=== PATIENT | female | born 1985 | race Caucasian/White ===

== ENCOUNTER 2019-02-01 14:58 | Outpatient (RCR) | payer OTHER, SELFPAY ==
[2019-02-01] MEDS: RHO(D) IMMUNE GLOBULIN 300 MCG SYRINGE IM (19:13)
== END 2019-05-02 23:59 | disposition home or self-care (01) ==
LOC: ANHLAB 14:58
PROVIDERS: Visit Provider Obstetrics & Gynecology
DX: Z29.13 Encounter for prophylactic Rho(D) immune globulin (principal); O36.0990 Maternal care for other rhesus isoimmunization, unspecified trimester, not applicable or unspecified; Z3A.00 Weeks of gestation of pregnancy not specified
CPT/HCPCS: 36415; 90384; 96372; J2790

== ENCOUNTER 2019-04-16 08:05 | Outpatient (CLI) | payer OTHER, SELFPAY ==
[2019-04-16 08:50] LABS: Hematocrit 38.4 % (37.0-47.0); Hemoglobin 12.7 g/dL (12.0-15.0); Mean Corpuscular HGB Conc 33.1 g/dl (32-36); Mean Corpuscular Hemoglobin 29.8 pg (26-34); Mean Corpuscular Volume 90.1 fl (80-100); Mean Platelet Volume 10.3 fl (7.4-10.4); Platelet Count Result 175 k/mm3 (150-375); Red Blood Count 4.26 M/mm3 (4.2-5.4); Red Cell Distribution Width 14.5 % (11.5-14.5); White Blood Count 9.3 K/mm3 (4.5-10.0)
[2019-04-16 09:27] LABS: Rapid Plasma Reagin Non-Reactive (NonReactive)
--- NOTE | 2019-04-16 17:46 | WPDANESEPP ---
Anes - Eval Pre Procedure Date/Time: 04/16/19 17:46 Pre Op Diagnosis: labs-Pre-op Patient Data Age: 34 Gender: F Height: Weight: Allergies Allergy/AdvReac Type Severity Reaction Status Date / Time No Known Allergies Allergy Verified 03/19/19 14:49 Home Medications Medication Instructions Recorded Confirmed Type PNV cmb#95-ferrous fumarate-FA 1 tablet PO DAILY 03/19/19 03/19/19 History [] Laboratory Tests 04/16/19 04/16/19 04/16/19 08:20 08:20 08:20 WBC 9.3 K/mm3 K/mm3 (4.5-10.0) RBC 4.26 M/mm3 M/mm3 (4.2-5.4) Hgb 12.7 g/dL g/dL (12.0-15.0) Hct 38.4 % % (37.0-47.0) MCV 90.1 fl fl (80-100) MCH 29.8 pg pg (26-34) MCHC 33.1 g/dl g/dl (32-36) RDW 14.5 % % (11.5-14.5) Plt Count 175 k/mm3 k/mm3 (150-375) MPV 10.3 fl fl (7.4-10.4) RPR Non-reactive (NonReactive) Blood Type A Negative Antibody Screen Positive Antibody Identification Pending Antigen Identification Pending SUSANNE, IgG Interpret Pending SUSANNE, Poly Interpret Pending SUSANNE, Complement Interp Pending Patient hx anesthesia problems: none Family hx anesthesia problems: none PMFSH Family History Family History (Updated 03/19/19 @ 14:51 by Charlie Ghosh RN) Mother Lupus Grandparent Lupus Breast cancer Rheumatic arteritis Social History Social History (System 01/04/19 @ 16:09 by Poornima Benavidez) Substance use: never Spiritual care concerns: No Exam Day of Procedure 04/16/19 17:46
== END 2019-04-16 08:06 | disposition home or self-care (01) ==
PROVIDERS: Visit Provider Obstetrics & Gynecology
DX: Z01.818 Encounter for other preprocedural examination (principal)
CPT/HCPCS: 36415; 85027; 86592; 86850; 86870; 86880; 86900; 86901; 86902; 86970; 86971

== ENCOUNTER 2019-04-17 09:44 | Inpatient (IN) | payer OTHER, SELFPAY ==
--- NOTE | 2019-03-19 15:02 | PC.NURSE ---
VERIFIED WITH OR SCHEDULE AND PATIENT --C/S ON 04/17/19 AT 1200 PATIENT GIVEN REQUISITION FOR LAB DRAW ON 04/16/19
[2019-04-17] VITALS (86 sets, daily range): BP systolic 82–116; BP diastolic 52–83; PULSE 58–94; RESP 12–20; TEMP 36.1–37.3; O2SAT 94–100; BMI 30.5
[2019-04-17] MEDS: LACTATED RINGERS 1,000 ML 125 ML IV CONT ×2 (10:35→11:19)
--- NOTE | 2019-04-17 10:45 | LDADM ---
This patient, Marisel Bloom, was admitted to Labor/Delivery/Recovery 120 on 04/17/19 at 09:44. Plans for surgery/ and pain management were discussed with patient. Patient/family oriented to hospital policies and general routines including ID bracelet, bed and alarms, visiting hours, pain management, procedures, bathroom and other care routines, personal items, smoking policy, room service/diet and guest tray routines, security routines, and visiting hours. Patient/Family are encouraged to report perceived risks to care and to ask questions if they do not understand what they are told or what they should do. See OBIX for further documentation.
--- NOTE | 2019-04-17 11:02 | WPDANESEPPF ---
Anes - Initial Pre Proc Eval Procedure: Operation Date: 04/17/19 12:00 Proposed Procedures p Repeat Section - Rajesh Ibarra MD Date/Time: 04/17/19 11:02 Surgeon: Rajesh Ibarra MD Pre Op Diagnosis: Repeat Section Patient Data Age: 34 Gender: F Height: 5 ft 7 in Weight: 88.5 kg Last Vital Signs Pulse 94 04/17/19 10:46 BP 100/70 04/17/19 10:46 Allergies Allergy/AdvReac Type Severity Reaction Status Date / Time No Known Allergies Allergy Verified 03/19/19 14:49 Home Medications Medication Instructions Recorded Confirmed Type PNV cmb#95-ferrous fumarate-FA 1 tablet PO DAILY 03/19/19 03/19/19 History [] Patient hx anesthesia problems: none Family hx anesthesia problems: none PMFSH Past Medical History Medical History (Updated 04/17/19 @ 11:03 by Senthil Valverde MD) History of renal stone Surgical History Surgical History History of D&C Family History Family History Mother Lupus Grandparent Lupus Breast cancer Rheumatic arteritis Social History Social History Substance use: never Spiritual care concerns: No Anes - Eval Final PreProcedure Day of Procedure 04/17/19 11:02 Patient weight: overweight Heart: regular rate and rhythm Lungs: clear to auscultation Airway: Mallampati scale class II Neurological: alert and oriented Last oral intake: >/= 8 hours ASA classification: II Emergent: no Anesthetic plan: proceed Anesthesia type and monitoring: regional spinal and standard monitoring Informed Consent: The patient's anesthetic plan and its attendant risks and benefits were discussed with the patient/family/POA. Questions were solicited and answers provided to the satisfaction of the patient/family/POA.
--- NOTE | 2019-04-17 11:33 | PM.IMHP ---
H&P: HPI History of Present Illness Chief complaint: Repeat Section Narrative: 34-year-old 3 para 1011 at 39 4/7 weeks gestation. She is here for a repeat delivery. Her has been uncomplicated. Last menstrual period is 07/14/2018, giving a due date of 04/20/2019, consistent with ultrasound exams in the 1st trimester. Ultrasound exam at 20 weeks demonstrated normal anatomy. Ultrasound exam at 36 weeks demonstrated an estimated weight of 6 lb 15 oz. Her blood type is A negative. She has received RhoGAM. She is rubella immune, hepatitis-B surface antigen negative, RPR negative, HIV negative. Testing for gonorrhea and Chlamydia was negative as well. Glucose challenge test was normal at 95. GBS culture was positive. Review of Systems Review of Systems: All systems reviewed & are unremarkable except as noted in HPI and below PMFSH Past Medical History Medical History (Updated 04/17/19 @ 11:40 by Rajesh Ibarra MD) History of renal stone Surgical History Surgical History History of delivery History of D&C Family History Family History Mother Lupus Grandparent Lupus Breast cancer Rheumatic arteritis Social History Social History Smoking status: Never smoker Substance use: never Spiritual care concerns: No Comments Past OB History: 1) CS of girl weighing 6#13oz for nonreassuring status. 2) Early SAB leading to D&C. 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 Menarche at 12 with menses every 30 days lasting 5-6 days each. No history of abnormal Pap. Meds Home Medications and Allergies Home Medications Medication Instructions Recorded Confirmed Type PNV cmb#95-ferrous fumarate-FA 1 tablet PO DAILY 03/19/19 04/17/19 History [] Allergies Allergy/AdvReac Type Severity Reaction Status Date / Time No Known Allergies Allergy Verified 03/19/19 14:49 Vital Signs Vital Signs - 24 hr 04/17/19 10:41 04/17/19 10:46 Pulse Rate 89 94 Blood Pressure 111/83 100/70 Exam Const: General: comfortable and no acute distress Neck: Neck: supple Thyroid: thyroid normal Resp: Effort & Inspection: normal respiratory effort Auscultation: clear to auscultation bilaterally Cardio: Rate: regular rate Rhythm: regular rhythm GI: Other: Soft, nontender, gravid. NST reactive TOCO: irregular contractions. : Other: Cervix closed, soft Skin: General skin exam: normal color and no rashes or lesions noted Extrem: Other: Nontender, no edema. Psych: Mental Status: mental status grossly normal Affect: normal affect Assessment and Plan Assessment and plan (1) Term : Code(s): Z34.90 - Encounter for supervision of normal , unspecified, unspecified trimester Status: Acute Assessment and Plan: A: IUP at 39 4/7 weeks with prior delivery, desiring repeat. GBS pos. P: I offered repeat delivery. She understands risks of surgery to include risks of anesthesia, risks of pain, infection, bleeding, blood products, thromboembolic phenomena and damage to adjacent structures such as bowel, bladder, ureters, blood vessels and nerves. She understands all these risks and elects to proceed with repeat delivery. Plan preoperative cefazolin.
[2019-04-17] MEDS: ceFAZolin 2 GM/D5W 50 ML 2 GM/50 ML BAG IVPB (11:39)
--- NOTE | 2019-04-17 12:37 | P.PCNOB_ITS ---
OB - Delivery Note Procedure Delivery date: 04/17/19 Procedure: Procedures Operation Date: 04/17/19 12:00 <No data on this case meets the specified criteria> Estimated blood loss (mL): 690 Anesthesia type: Spinal Disposition: PACU Complications: None Narrative: The patient was taken to the operating room where she was prepared and draped in the usual sterile fashion in dorsal supine position with a leftward tilt. She received cefazolin preoperatively. Spinal anesthesia was found to be adequate. A Pfannenstiel skin incision was made along the previous scar line and was carried through to the underlying layer of the fascia. The fascia was incised in the midline and the incision was extended laterally. The fascia was dissected free of the underlying rectus muscles. The rectus muscles were in the midline. The peritoneum was identified, tented up and en tered sharply. The peritoneal incision was extended superiorly and inferiorly with good visualization of the bladder. The bladder blade was placed. The vesicouterine peritoneum was identified, tented up and entered sharply. The incision was extended laterally and the bladder flap was developed. The bladder blade was replaced. The uterus was then incised sharply in a transverse fashion along the lower uterine segment. The incision was extended laterally. The infant's head was delivered atraumatically to the sterile field, followed by the body. The nose and mouth were bulb suctioned. After a delay, the cord was clamped and cut. The infant was handed off the field. Cord blood was collected. The placenta was removed manually and was passed off the field. The uterus was exteriorized and cleared of all clots and debris. The uterine incision was reapproximated using 0 Monocryl in a running, locked fashion. A second, imbricating layer of the same suture resulted in excellent hemostasis. The uterus was returned the abdomen. The pelvis was irrigated copiously with warmed normal saline. Rigorous hemostasis was assured. The fascial layer was reapproximated using 0 Vicryl in a running fashion. The skin was closed with a running, subcuticular stitch of 4 0 Vicryl. Dermaflex was applied externally. Sponge, lap, needle and instrument counts were correct. The patient was taken to the recovery room in stable condition. The infant went to the nursery in stable condition. I was present and scrubbed through the entire procedure. Baby Date of : 04/17/19 Time of : 12:38 Weeks of gestation at delivery: 39 gender: Female Weight (pounds): 8 Weight (ounces): 7 Placenta delivery description: Manual Removal and Normal Configuration cord vessel description: 3 Vessels score one minute: 8 score five minutes: 9
--- NOTE | 2019-04-17 12:40 | PM.OBDSVD ---
DS: Diagnosis Admitting Diagnosis Admitting Diagnosis: Encounter for supervision of normal , unspecified, unspecified trimester Discharge Diagnosis (1) delivery delivered: Code(s): O82 - Encounter for delivery without indication Status: Acute (2) GBS (group B Streptococcus carrier), +RV culture, currently : Code(s): O99.820 - Streptococcus B carrier state complicating Status: Acute (3) Term : Code(s): Z34.90 - Encounter for supervision of normal , unspecified, unspecified trimester Status: Acute OB - DS: Summary OB Procedures : None OB Procedures Intrapartum: OB Procedures: : None Discharge Plan Discharge Attending physician on discharge: Rajesh Ibarra Consulting providers: Senthil Valverde ; Isael Hayes Discharging Clinician: Isael Hayes Patient Disposition: Home, Self-Care Activity: may shower, may drive after 2 weeks and pelvic rest Diet: regular Wound Care Instructions: follow printed instructions Discharge Instructions: Education: Mom and Baby Guide Given to: Mother Follow-Up: Call your delivering provider's office for an appointment to be seen in: 1 Week Mom and baby should come to the [facility] for the follow-up appointment. Appointment Date/Time: April 22, 2019 at 10:00 am What to expect at your follow-up visit: Blood Pressure Check Physical Assessment Call [phone] if you are unable to keep your appointment time. BREAST CARE: 1. Wear a snug supportive bra. 2. For engorgement discomfort: Breast Feeding: A. Apply warm moist washcloths B. Express milk as needed to relieve engorgement C. Wear loose clothing 3. For sore nipples: A. Identify correct latch-on B. Apply warm moist washcloths before and after nursing C. Air dry nipples after nursing D. May apply Lansinoh cream to nipples ABDOMINAL INCISION: (if applicable) 1. Allow incision to air dry 2. Do NOT use lotions for powders on your incision 3. When showering, allow soap and water to run over the incision, but do not wash incision EPISIOTOMY/PERINEAL CARE: 1. Until bleeding stops, use your estella bottle after urinating 2. Change your pad frequently throughout the day 3. No tub baths until seen by your physician - You may shower ACTIVITY: 1. Rest as much as possible. 2. Do not exercise or lift anything heavier than your baby (such as laundry or other children.) 3. Avoid stairs or driving as much as possible. 4. Do not put anything into the vagina. No douching, tampons, or sexual activity until seen by physician. NOTIFY PHYSICIAN IF YOU HAVE ANY QUESTIONS OR IF ANY OF THE FOLLOWING SYMPTOMS OCCUR: 1. If your incision becomes red, swollen, or more painful than what you have experienced in the hospital. 2. If your vaginal bleeding becomes foul smelling. 3. If your vaginal bleeding becomes more heavy than a period or if your bleeding changes from pink to bright red. However, you may pass an occasional walnut-sized clot once or twice for the first week . 4. If you experience a sharp, shooting pain in you calves. 5. If you discover a hard, reddened area on your breast or if you experience flu-like symptoms. DIET: 1. Eat regular, well-balanced meals. 2. Drink plenty of fluids daily. If , drink to thirst. Call or return if temperature above 100.4? F, increased abdominal pain, increased vaginal bleeding or any new problems. Stand Alone Forms: General Discharge Information Follow-up/Referrals: Rajesh Ibarra MD [Physician] - (4 weeks) Discharge Medications: New hydrocodone-acetaminophen [[place]] 5-325 mg tablet 1 - 2 tablet PO Q6H PRN (Reason: pain) Qty: 30 RF: 0 ibuprofen 600 mg tablet 600 mg PO Q6H PRN (Reason: cramps) Qty:
--- NOTE | 2019-04-17 14:01 | SUR.PHASEI ---
Dr. Ibarra informed of saturated estella-pad that weighed 140 gms. Pad was changed 15 mins ago and now the middle of the pad is saturated. Fundus is firm at U; no clots expressed, BP's 107/73 and p 76. 2nd bag of Pitocin insufing at 125 ml/hr. No additional orders at this time.
--- NOTE | 2019-04-17 15:40 | PC.NURSE ---
Pt to nursery to see in level II nursery before moving pt to mom/baby unit.
--- NOTE | 2019-04-17 15:58 | PC.NURSE ---
Dr. Ibarra updated on blood loss in recovery room. Order received for Methergine.
[2019-04-17] MEDS: METHYLERGONOVINE MALEATE 0.2 MG/ML VIAL IM (16:14)
[2019-04-17] MEDS: ONDANSETRON INJ 4 MG/2 ML VIAL IV PUSH (16:32)
[2019-04-17] MEDS: DEXTROSE 5%/0.45% SOD CHL 1,000 ML 125 ML IV CONT (17:10)
--- NOTE | 2019-04-17 19:01 | OBPPTRN ---
Addendum entered by Peri Wilson RN 04/17/19 19:11: time should be 1605 Original Note: Patient transferred to post room #285 via stretcher . Support person present. Oriented to unit, room, information board, rooming in, admission packet and security measures. Patient verbalizes understanding.
[2019-04-18] MEDS: IBUPROFEN 600 MG TABLET PO ×4 (00:26→20:09)
[2019-04-18] MEDS: SIMETHICONE 80 MG TAB.CHEW PO ×6 (00:28→16:57)
[2019-04-18 04:30] VITALS: BP 92/68; PULSE 83; RESP 16; TEMP 36.5; O2SAT 100
[2019-04-18 05:17] LABS: Basophils Percent Auto 0.3 % (0.2-1.2); Eosinophils Percent Auto 0.2 % (0-4.4); Hematocrit 35.6 % (37.0-47.0); Hemoglobin 11.5 g/dL (12.0-15.0); Immature Granulocyte Absolute 0.07 K/mm3 (0.00-0.031); Immature Granulocyte Percent A 0.5 % (0-0.5); Lymphocytes Absolute Auto 1.08 K/mm3 (0.9-3.2); Lymphocytes Percent Auto 7.5 % (18.3-44.2); Mean Corpuscular HGB Conc 32.3 g/dl (32-36); Mean Corpuscular Hemoglobin 29.6 pg (26-34); Mean Corpuscular Volume 91.8 fl (80-100); Mean Platelet Volume 10.5 fl (7.4-10.4); Monocytes Absolute Auto 1.1 K/mm3 (0.1-0.6); Monocytes Percent Auto 7.9 % (2.6-8.5); Neutrophils Absolute Auto 12.1 K/mm3 (1.3-6.7); Neutrophils Percent Auto 83.6 % (45.5-73.1); Platelet Count Result 156 k/mm3 (150-375); Red Blood Count 3.88 M/mm3 (4.2-5.4); Red Cell Distribution Width 14.6 % (11.5-14.5); White Blood Count 14.4 K/mm3 (4.5-10.0)
[2019-04-18] MEDS: DOCUSATE SODIUM 100 MG CAPSULE PO ×2 (08:16→16:58)
[2019-04-18] MEDS: MULTIVIT/MIN/PREN/FOL AC/IRON TABLET 1 TAB PO (08:16)
[2019-04-18 08:40] VITALS: BP 107/65; PULSE 88; RESP 18; TEMP 36.9; O2SAT 99
--- NOTE | 2019-04-18 11:52 | P.PNOB_ITS ---
OB - PN: Subj Subjective Date/time seen: 04/18/19 11:52 Narrative: Pain OK. Tolerating diet. Voiding. OB - PN: Obj Data Labs CBC & Chem 7: 04/18/19 04:42 Labs: Laboratory Results - last 24 hr 04/16/19 04/18/19 08:16 04:42 WBC 14.4 H RBC 3.88 L Hgb 11.5 L Hct 35.6 L MCV 91.8 MCH 29.6 MCHC 32.3 RDW 14.6 H Plt Count 156 MPV 10.5 H Immature Gran % (Auto) 0.5 Neut % (Auto) 83.6 H Lymph % (Auto) 7.5 L Chambers % (Auto) 7.9 Eos % (Auto) 0.2 Baso % (Auto) 0.3 Lymph # (Auto) 1.08 Chambers # (Auto) 1.1 H Eos # (Auto) 0.0 Baso # (Auto) 0.0 Abs Immat Gran (auto) 0.07 H Absolute Neuts (auto) 12.1 H Absolute Nucleated RBC 0.0 Nucleated RBC % 0.0 Enhanced Crossmatch See Detail OB - PN A/P Plan Comments: A: POD#1, doing well. P: Routine care. Exam Psych: Other: AVSS I/O OK ABD soft, nontender, fundus firm. Incision c/d/i. EXT nontender
[2019-04-18 12:40] VITALS: BP 103/59; PULSE 96; RESP 18; TEMP 37; O2SAT 100
--- NOTE | 2019-04-18 14:08 | WPDANLDPN2 ---
Anes-Prog Note L&D Date/Time: 04/18/19 14:08 Comfortable throughout: section Neuraxial method: spinal Epidural/Spinal procedure site: clean & non-tender Neuro status: Neuro function grossly intact. Cardiovascular status: normal Respiratory status: normal Airway patency: baseline Mental status: baseline Post-Op hydration status: normal Vital Signs: Last Vital Signs Temp 98.4 F 04/18/19 08:40 Pulse 88 04/18/19 08:40 Resp 18 04/18/19 08:40 BP 107/65 04/18/19 08:40 Pulse Ox 99 04/18/19 08:40 I/O: Intake & Output 04/17/19 04/18/19 04/18/19 23:59 07:59 15:59 Intake Total 800 Output Total 1400 2200 500 Balance -1400 -1400 -500 Post-procedural complaints: pruritis moderate, treatment effective Patient feedback: Patient satisfied with anesthetic care.
--- NOTE | 2019-04-18 14:08 | WPDANLDNPN2 ---
Anes-Prog Note L&D-Neuraxial Date/Time: 04/18/19 14:08 Neuraxial medications: intrathecal PF morphine Opiod-related complaints: pruritis moderate, treatment effective Patient feedback: Patient satisfied with post-operative pain management.
--- NOTE | 2019-04-18 14:20 | PC.NURSE ---
Upon entering mother has to breast, in football with shallow latch and chin to chest. Mother reports some discomfort during nursing. Reviewed positioning/alignment in football, holding breast in C hold and guided asymmetrical latch on. Demonstrated how to adjust latch more deeply while nursing. Infant was able to draw in more of areola, mother reporting less tenderness. Adjust head with chin up and straight in front of nipple. Infant nursed eagerly, with steady draws and occasional swallowing noted. Reviewed signs of a correct latch, effective nursing and suck swallow ratio. Infant was able to maintain latch with minimal discomfort to mother. Nipple care reviewed. Instructed mother to call out for RN assistance if she is unable to latch for feeding or she has discomfort with nursing. Instructed feeding should be initiated three hours from start of last feeding or if feeding cues are noted before. Mother voiced understanding of information shared. Reviewed feeding cues, frequencies, duration of feedings, feeding elimination flow sheet, and signs of adequate intake. Demonstrated stimulation techniques to wake infant for feeding. Assisted with to breast.
[2019-04-18 20:00] VITALS: BP 90/49; PULSE 85; RESP 16; TEMP 36.9; O2SAT 99
[2019-04-19] MEDS: SIMETHICONE 80 MG TAB.CHEW PO ×6 (01:29→20:49)
[2019-04-19] MEDS: IBUPROFEN 600 MG TABLET PO ×3 (05:29→20:49)
[2019-04-19 08:05] VITALS: BP 130/52; PULSE 90; RESP 16; TEMP 36.9; O2SAT 99
[2019-04-19] MEDS: DOCUSATE SODIUM 100 MG CAPSULE PO ×2 (08:08→14:44)
[2019-04-19] MEDS: MULTIVIT/MIN/PREN/FOL AC/IRON TABLET 1 TAB PO (08:08)
--- NOTE | 2019-04-19 09:00 | PC.NURSE ---
Consulted with patient, mother reports less tenderness after working with deeper latch. Mother is able to independently latch infant with appropriate positioning/alignment. She is feeding as required and waking to feed if needed. is currently meeting outcomes for weight, output, jaundice and feeding frequencies. Reviewed transition to breast milk, signs of adequate intake, and engorgement/relief. Instructed to call ICP if intake/output less than required. Reviewed regular medications mother is taking. Information provided per Eliza. Reviewed community resources on the [facility] website and in the Mom/Baby guide. Information on outpatient services provided. Mother has no further questions at this time.
--- NOTE | 2019-04-19 16:00 | PC.NURSE ---
Patient viewed the discharge video Mother & Baby Care, The First Two Weeks . Patient was given the opportunity and encouraged to ask questions. Patient verbalized understanding of information shared and has been given the mother/baby guide for home reference.
--- NOTE | 2019-04-19 16:20 | PM.OBPNVD ---
OB - PN: Subj Subjective Date/time seen: 04/19/19 16:20 Interval history: Patient doing well today. She is sitting up comfortably in a chair breast-feeding. She is tolerating PO without N/V. She reports adequate pain control. Her bleeding is normal and she reports normal lochia. She denies fever, chills, N/V. She is voiding spontaneously. She is passing flatus but has not yet had a BM. Patient comments: no complaints and pain well controlled; no flatus present OB - PN: Obj Data Labs CBC & Chem 7: 04/18/19 04:42 OB - PN A/P Plan day: 1 Plan: routine care Comments: patient doing well voiding spontaneously Tolerating PO H/H Stable pt desires d/c home tomorrow continue routine PP care Time Spent With Patient Time: Total time spent is greater than 50% in coordination of care (as documented) at patient's floor/unit and/or counseling patient: Time with patient: less than 15 minutes Review of Systems Constitutional: Constitutional: Reports no additional constitutional complaints Cardiovascular: Cardiovascular: Reports no additional cardiovascular complaints Respiratory: Respiratory: Reports no additional respiratory complaints Gastrointestinal: Gastrointestinal: Reports no additional gastrointestinal complaints Genitourinary: Genitourinary: Reports no additional female genitourinary complaints Exam Const: General: comfortable and no acute distress Resp: Effort & Inspection: normal respiratory effort Auscultation: clear to auscultation bilaterally Cardio: Rate: regular rate GI: GI Palp: Yes Soft to palpation and Yes Tenderness to palpation present (GI) (appropriately tender around incision ) Auscultation: normal bowel sounds Other: fundus firm and below umbilicus Incision C/D/I Urinary Catheter: Urinary Catheter: urine clear Psych: Appearance: grossly normal Mental Status: mental status grossly normal Affect: normal affect
[2019-04-19 20:45] VITALS: BP 112/64; PULSE 85; RESP 16; TEMP 37.1; O2SAT 100
[2019-04-20] MEDS: IBUPROFEN 600 MG TABLET PO ×2 (03:50→10:12)
--- NOTE | 2019-04-20 07:49 | P.DS_ITS ---
DS: Diagnosis Admitting Diagnosis Admitting Diagnosis: Encounter for supervision of normal , unspecified, unspecified trimester ter DS: Summary Time Spent with Patient Time attestation: Total time spent providing and/or coordinating discharge services: Exam Const: General: no acute distress Eyes: General: appearance normal, both eyes and all related structures Neck: Neck: supple and no JVD Thyroid: thyroid normal Resp: Effort & Inspection: normal respiratory effort Auscultation: clear to auscultation bilaterally Cardio: Rate: regular rate Rhythm: regular rhythm GI: Inspection: non-distended GI Palp: Yes Soft to palpation, No Tenderness to palpation present (GI) and No Guarding due to palpation present (GI) Auscultation: normal bowel sounds : General: Yes bladder normal to palpation External Female Exam: normal external appearance Speculum Exam - Vagina: normal vaginal discharge and No vaginal bleeding Speculum Exam - Cervix: nontender Bimanual exam- vagina & uterus: bladder normal to palpation and No Cervical tenderness present OB/external & speculum: No vaginal bleeding Skin: General skin exam: no rashes or lesions noted Extrem: General: normal to inspection and no edema Psych: Mental Status: mental status grossly normal Affect: normal affect Discharge Plan Discharge Attending physician on discharge: Rajesh Ibarra Discharging Clinician: Isael Hayes Patient Disposition: Home, Self-Care Activity: may shower, may drive after 2 weeks and pelvic rest Diet: regular Wound Care Instructions: follow printed instructions Discharge Instructions: Call or return if temperature above 100.4? F, increased abdominal pain, increased vaginal bleeding or any new problems. 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
--- NOTE | 2019-04-20 07:50 | PM.OBPNVD ---
OB - PN: Subj Subjective Date/time seen: 04/20/19 07:50 Interval history: Patient doing well today. She is sitting up comfortably in a chair breast-feeding. She is tolerating PO without N/V. She reports adequate pain control. Her bleeding is normal and she reports normal lochia. She denies fever, chills, N/V. She is voiding spontaneously. She is passing flatus but has not yet had a BM. Patient comments: no complaints and pain well controlled baby status: doing well and nursing well OB - PN: Obj Data Labs CBC & Chem 7: 04/18/19 04:42 OB - PN A/P Plan day: 3 Plan: routine care, discharge home and follow up 6 weeks (4 weeks) Time Spent With Patient Time: Total time spent is greater than 50% in coordination of care (as documented) at patient's floor/unit and/or counseling patient: Time with patient: less than 15 minutes Review of Systems Review of Systems: All systems reviewed & are unremarkable except as noted in HPI and below Exam Const: General: no acute distress Eyes: General: appearance normal, both eyes and all related structures Neck: Neck: supple and no JVD Thyroid: thyroid normal Resp: Effort & Inspection: normal respiratory effort Auscultation: clear to auscultation bilaterally Cardio: Rate: regular rate Rhythm: regular rhythm GI: Inspection: non-distended GI Palp: Yes Soft to palpation, No Tenderness to palpation present (GI) and No Guarding due to palpation present (GI) Auscultation: normal bowel sounds : General: Yes bladder normal to palpation External Female Exam: normal external appearance Speculum Exam - Vagina: normal vaginal discharge and No vaginal bleeding Speculum Exam - Cervix: nontender Bimanual exam- vagina & uterus: bladder normal to palpation and No Cervical tenderness present OB/external & speculum: No vaginal bleeding Skin: General skin exam: no rashes or lesions noted Extrem: General: normal to inspection and no edema Psych: Mental Status: mental status grossly normal Affect: normal affect
[2019-04-20 08:45] VITALS: BP 104/66; PULSE 76; RESP 18; TEMP 37.3; O2SAT 98
[2019-04-20] MEDS: DOCUSATE SODIUM 100 MG CAPSULE PO (10:12)
[2019-04-20] MEDS: SIMETHICONE 80 MG TAB.CHEW PO (10:15)
[2019-04-20] MEDS: MULTIVIT/MIN/PREN/FOL AC/IRON TABLET 1 TAB PO (10:16)
[2019-04-22 10:31] VITALS: BP 110/73; PULSE 89; RESP 18; TEMP 37.3
== END 2019-04-20 12:54 | disposition home or self-care (01) | DRG 788 ==
LOC: ANHLDR 10:01 → ANHOB2 04-20 11:54 → ANHLDR 04-23 06:28 → ANHOB2 04-23 06:28
PROVIDERS: Admitting Provider Obstetrics & Gynecology; Visit Provider Obstetrics & Gynecology
PROC: 10D00Z1 Extraction of Products of Conception, Low, Open Approach (ICD-10-PCS; CPT 59514; principal; 2019-04-17 12:00)
DX: O34.211 Maternal care for low transverse scar from previous cesarean delivery (principal); Z3A.39 39 weeks gestation of pregnancy; Z37.0 Single live birth; O99.824 Streptococcus B carrier state complicating childbirth
CPT/HCPCS: 36415; 85025; 85027; 86592; 86850; 86870; 86880; 86900; 86901; 86922; 86970; 86971; A9270; J0131; J0690; J2210; J2274; J2370; J2405; J2590; J7120

== ENCOUNTER 2021-10-04 08:03 | Outpatient (CLI) | payer OTHER, SELFPAY ==
--- NOTE | ~2021-10-04 | US_ITS ---
US right upper quadrant INDICATION: Abdomen pain PROCEDURE: Realtime right upper abdominal ultrasound. COMPARISON: No prior studies for comparison. FINDINGS: The pancreas is normal without focal mass or pancreatic ductal dilation. Liver echotexture is normal without focal mass or intrahepatic biliary dilatation. There is normal directional flow i n the portal vein. The gallbladder is normal without stones, gallbladder wall thickening or pericholecystic fluid. Comm on bile duct measures 3 mm. No sonographic Womack's sign. IMPRESSION: 1: Normal limited abdominal ultrasound. Reviewed, dictated and finalized at location A.
== END 2021-10-04 08:04 | disposition home or self-care (01) ==
PROVIDERS: Visit Provider Obstetrics & Gynecology
DX: R10.9 Unspecified abdominal pain (principal)
CPT/HCPCS: 76705

== ENCOUNTER 2023-01-16 12:05 | Outpatient (CLI) | payer OTHER, SELFPAY ==
[2023-01-16 12:36] LABS: Hematocrit 41.9 % (37.0-47.0); Hemoglobin 13.9 g/dL (12.0-15.0); Mean Corpuscular HGB Conc 33.2 g/dl (32-36); Mean Corpuscular Volume 90.5 fl (80-100); Platelet Count Result 232 k/mm3 (150-375); Red Blood Count 4.63 M/mm3 (4.2-5.4); Red Cell Distribution Width 12.4 % (11.5-14.5); White Blood Count 5.4 K/mm3 (4.5-10.0)
[2023-01-16 12:42] LABS: Appearance Urine Cloudy (Clear); Bacteria Urine Rare /hpf; Bilirubin Urine Negative (Negative); Blood Urine Negative (Negative); Color Urine Yellow (Yellow); Glucose Urine UA Negative (Negative); Ketones Urine Trace mg/dL (Negative); Leukocyte Esterase Ur 2+ LEU/UL (Negative); Nitrate Urine Negative (Negative); Non Pathogenic Casts 0-2; Protein Urine Negative (Negative); RBC Urine 0-2 /hpf (0-2); Specific Grav Ur 1.017 (1.001-1.035); Squamous Epithelial Cell Urine Moderate /hpf (Few); pH Urine 5.5 (5.0-9.0)
[2023-01-16 12:47] LABS: Add Urine Microscopic? YES
[2023-01-16 12:47] LABS: Alanine Aminotransferase 18 U/L (6-35); Albumin Level 4.4 g/dL (3.5-5.1); Alkaline Phosphatase 39 U/L (38-126); Anion Gap 11 mmol/L (8-16); Aspartate Amino Transferase 24 U/L (14-36); Bilirubin,Total 0.7 mg/dL (0.2-1.3); Blood Urea Nitrogen 10 mg/dL (7-17); CRP 0.5 mg/dL (<1.0); Calcium 9.1 mg/dL (8.4-10.2); Carbon Dioxide 25 mmol/L (22-30); Chloride 104 mmol/L (98-107); Estimated Glomerular Filt Rate > 60; Glucose 120 mg/dL (65-110); Potassium 3.6 mmol/L (3.4-5.0); Sodium 140 mmol/L (137-145)
[2023-01-16 13:32] LABS: Erythrocyte Sedimentation Rate 8 mm/hr (0-20)
[2023-01-19 20:23] LABS: Immunoglobulin A 137 mg/dL (47-310); TTG IGA AB <1.0 U/mL (<15.0)
== END 2023-01-16 12:06 | disposition home or self-care (01) ==
LOC: ANHLAB 12:06
PROVIDERS: PCP Nurse Practitioner Family; Visit Provider Nurse Practitioner
DX: K92.1 Melena (principal); R10.33 Periumbilical pain; R19.4 Change in bowel habit; R19.8 Other specified symptoms and signs involving the digestive system and abdomen
CPT/HCPCS: 36415; 80053; 81001; 82784; 84443; 85027; 85652; 86140; 86364; 87077; 87086; 87088

== ENCOUNTER 2023-02-06 09:02 | Day surgery (SDC) | payer OTHER, SELFPAY ==
[2023-01-18 11:01] VITALS: BMI 25.2
--- NOTE | 2023-02-06 07:26 | WPDANESEPPF ---
Anes - Initial Pre Proc Eval Procedure: Operation Date: 02/06/23 13:30 Proposed Procedures p Colonoscopy - Orlin Cadena MD Date/Time: 02/06/23 07:26 Surgeon: Orlin Cadena MD Pre Op Diagnosis: Other Specified Sym.&Signs Involving Digesitve Sys Patient Data Age: 37 Gender: F Height: 1.7 m Weight: 73 kg Allergies Allergy/AdvReac Type Severity Reaction Status Date / Time No Known Allergies Allergy Verified 02/06/23 12:06 Home Medications Medication Instructions Recorded Confirmed Type etonogestrel 0.12 mg-ethinyl 1 vag ring vaginal ONCE 01/16/23 02/06/23 History estradiol 0.015 mg/24 hr vaginal ring (NuvaRing) Patient hx anesthesia problems: none Family hx anesthesia problems: none Results Review: All pre-operative results and documents have been reviewed as part of the pre-operative evaluation. [facility] Past Medical History Medical History (Updated 01/16/23 @ 12:17 by Belinda Mullins APRN) Altered bowel habits Hematochezia History of renal stone Periumbilical discomfort Rectal itching Recurrent UTI Swollen neck Tenesmus Surgical History Surgical History History of delivery History of D&C Family History Family History Mother Lupus Grandparent Lupus Breast cancer Rheumatic arteritis Social History Social History Smoking status: Never smoker Alcohol intake: former Alcohol use details: QUIT 1 YEAR AGO Substance use: never Substance use type: does not use Living arrangements: with family Spiritual care concerns: No Anes - Eval Final PreProcedure Day of Procedure 02/06/23 07:26 Patient weight: overweight Heart: regular rate and rhythm Lungs: clear to auscultation Airway: Mallampati scale class II Neurological: alert and oriented Last oral intake: >/= 8 hours ASA classification: I Emergent: no Anesthetic plan: proceed Anesthesia type and monitoring: general GIVS and standard monitoring Results Review: All pre-operative results and documents have been reviewed as part of the pre-operative evaluation. Informed Consent: The patient's anesthetic plan and its attendant risks and benefits were discussed with the patient/family/POA. Questions were solicited and answers provided to the satisfaction of the patient/family/POA.
[2023-02-06 12:10] VITALS: BP 97/67; PULSE 84; RESP 14; TEMP 37.2; O2SAT 100; BMI 24.8
[2023-02-06] MEDS: LACTATED RINGERS 1,000 ML 150 ML IV CONT (12:24)
--- NOTE | 2023-02-06 12:31 | WPDHPUPDATE1 ---
History and Physical Update Update Date/Time: 02/06/23 12:31 History and Physical has been reviewed, including an updated exam of the patient. There are NO changes in the patient's condition. Risks, benefits, and alternatives have been discussed and questions answered. Patient agrees to proceed with procedure.
[2023-02-06 13:01] VITALS: BP 110/75; PULSE 103; RESP 18; O2SAT 100
[2023-02-06 13:11] VITALS: BP 98/68; PULSE 85; RESP 15; O2SAT 100
[2023-02-06 13:21] VITALS: BP 106/74; PULSE 64; RESP 16; O2SAT 100
== END 2023-02-06 13:32 | disposition home or self-care (01) ==
PROVIDERS: PCP Nurse Practitioner Family; Visit Provider Internal Medicine Gastroenterology
PROC: 0DJD8ZZ Inspection of Lower Intestinal Tract, Via Natural or Artificial Opening Endoscopic (ICD-10-PCS; CPT 45378; principal; 2023-02-06 13:30)
DX: K92.1 Melena (principal); D12.2 Benign neoplasm of ascending colon; K64.8 Other hemorrhoids
CPT/HCPCS: 45385

== ENCOUNTER 2023-02-07 10:56 | Outpatient (NON) | payer OTHER, SELFPAY | END 2023-02-07 10:57 | disposition home or self-care (01) | LOC: ANHLAB 10:58 | PROVIDERS: PCP Nurse Practitioner Family; Visit Provider Internal Medicine Gastroenterology | DX: R19.4 Change in bowel habit (principal) | CPT/HCPCS: 88305 ==